=== PATIENT | female | born 1985 | race African-American/Black ===

== ENCOUNTER 2017-04-12 05:42 | Emergency (ER) | payer OTHER ==
[2017-04-12 06:10] VITALS: BP 136/95; PULSE 68; TEMP 98.7; BMI 31.6
--- NOTE | 2017-04-12 06:41 | PDOC ---
History of Present Illness - General Chief Complaint: Cold Symptoms Stated Complaint: SHORTNESS OF BREATH Time Seen by Provider: 04/12/17 06:19 - History of Present Illness Initial Comments: 04/12/17 06:27 CHIEF COMPLAINT: cough/chest pain HISTORY OF PRESENT ILLNESS: 31 yo F with no significant PMH presents to ED with uncertain complaint. Patient reports that she ate chips before going to bed, and "kind of like choked a little and coughed it up, and then I woke up feeling like I was still coughing and had phlegm, but I'm not sick, and then I felt some chest pain or something, but now I feel ok. I'm not sure what happened." Patient states she feels like she wants to go home and go to sleep. Patient reports that she was recently prescribed alprazolam for anxiety but has not taken any. No recent travel or sick contacts. PAST MEDICAL HISTORY: Denies past medical history FAMILY HISTORY: Denies SOCIAL HISTORY: Denies tobacco, alcohol, illicit drug use. SURGICAL HISTORY: Denies ALLERGIES: No known drug allergies REVIEW OF SYSTEMS General/Constitutional: Denies fever or chills. Denies weakness, weight change. HEENT: Denies change in vision. Denies ear pain or discharge. Denies sore throat. Cardiovascular: "I had chest pain for a little and some shortness of breath but now I feel better." Respiratory: "I coughed, and had some phlegm, and thought I couldn't breathe for second." Gastrointestinal: Denies nausea, vomiting, diarrhea or constipation. Denies rectal bleeding. Genitourinary: Denies dysuria, frequency, or change in urination. Musculoskeletal: Denies joint or muscle swelling or pain. Denies neck or back pain. Skin and breasts: Denies rash or easy bruising. PHYSICAL EXAM General Appearance: Well-appearing, appropriately dressed. No apparent distress. HEENT: EOMI, PERRLA, normal ENT inspection, normal voice, TMs normal, pharynx normal. No conjunctival pallor. No photophobia, scleral icterus. Neck: Supple. Trachea midline. No tenderness, rigidity, carotid bruit, stridor , lymphadenopathy, or thyromegaly. Respiratory/Chest: Lungs CTAB. No shortness of breath, chest tenderness, respiratory distress, accessory muscle use. No crackles, rales, rhonchi, stridor , wheezing, dullness Cardiovascular: RRR. S1, S2. Musculoskeletal/Extremities: Normal inspection. FROM of all extremities, normal capillary refill. Pelvis Stable. No CVA tenderness. No tenderness to extremities, pedal edema, swelling, erythema or deformity. Integumentary: Appropriate color, dry, warm. No cyanosis, erythema, jaundice or rash Neurologic: tap builder II-XII intact. Fully oriented, alert. Appropriate mood/affect. Motor strength 5/5. No appreciable EOM palsy, facial droop or sensory deficit. Past History - Past Medical History Allergies/Adverse Reactions: Allergies Allergy/AdvReac Type Severity Reaction Status Date / Time No Known Allergies Allergy Verified 04/12/17 06:08 Home Medications: Ambulatory Orders NK [No Known Home Medication] 05/22/15 Anemia: Yes - Surgical History Abdominal Surgery: Yes (D AND C) - Reproductive History (#): 6 Para: 2 Therapeutic (s) & number: Yes (2) - Immunization History Immunization Up to Date: Yes - Suicide/Smoking/Psychosocial Hx Smoking Status: No Smoking History: Never smoked Have you smoked in the past 12 months: No Number of Cigarettes Smoked Daily: 0 Information on smoking cessation initiated: No Hx Alcohol Use: No Drug/Substance Use Hx: No Substance Use Type: None *Physical Exam - Vital Signs Last Vital Signs Temp Pulse Resp BP Pulse Ox 98.7 F 68 14 136/95 100 04/12/17 06:09 04/12/17 06:09 04/12/17 06:09 04/12/17 06:09 04/12/17 06:09 Medical Decision Making - Medical Decision Making 04/12/17 06:41 31 yo F with no significant PMH presents to ED with coughing/choking sensation with chest pain s/p eating chips before going to bed. -EKG Patient states she wants to go home and f/u with her PCP Ber[facility] for further evaluation. Low risk for cardiac etiology, likely reflux secondary to eating prior to going to bed with mild anxiety attack. Patient is well appearing with normal physical exam. Advised patient of signs and symptoms for return to ER; patient verbalized understanding and agrees to plan. *DC/Admit/Observation/Transfer Diagnosis at time of Disposition: Anxiety, Gastroesophageal reflux disease - Discharge Dispostion Disposition: HOME Condition at time of disposition: Stable Admit: No - Referrals Referrals: Jackie Last MD [Non Staff, Medical] - - Patient Instructions Printed Discharge Instructions: DI for Anxiety -- Adult, DI for Panic Disorder , DI for Gastroesophageal Reflux Disease (GERD) Additional Instructions: Please follow up with Dr. Last today as planned. If you develop any new or worsening chest pain, shortness of breath, palpitations, or any new or worsening symptoms, please return to the ER.
--- NOTE | 2017-04-12 11:03 | EKG ---
Test Reason : Blood Pressure : / mmHG Vent. Rate : 066 BPM Atrial Rate : 066 BPM P-R Int : 168 ms QRS Dur : 102 ms QT Int : 402 ms P-R-T Axes : 049 020 020 degrees QTc Int : 421 ms NORMAL SINUS RHYTHM INCOMPLETE RIGHT BUNDLE BRANCH BLOCK BORDERLINE ECG WHEN COMPARED WITH ECG OF 22-MAY-2015 18:01, NO SIGNIFICANT CHANGE WAS FOUND Confirmed by REYES LUNDY MD ([id number]) on 04/12/2017 11:03:16 AM Referred By: Confirmed By:REYES LUNDY MD
== END 2017-04-12 06:55 | disposition home or self-care (01) ==
LOC: JER 05:42
DX: K21.9 Gastro-esophageal reflux disease without esophagitis (principal); F41.9 Anxiety disorder, unspecified
CPT/HCPCS: 93005; 93010; 99282-25

== ENCOUNTER 2018-01-01 23:24 | Emergency (ER) | payer OTHER ==
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
[2018-01-02 01:07] VITALS: BP 132/87; PULSE 62; TEMP 97.5; BMI 29.9
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
[2018-01-02] MEDS ORDERED: DIPHTH,PERTUSS(ACELL),TET 0.5 ML DISP.SYRIN IM ONE (01:16)
== END 2018-01-02 01:47 | disposition home or self-care (01) ==
LOC: JER 23:24
PROC: 3E0234Z Introduction of Serum, Toxoid and Vaccine into Muscle, Percutaneous Approach (ICD-10-PCS; principal; 2018-01-01)
DX: S70.371A Other superficial bite of right thigh, initial encounter (principal); Y04.1XXA Assault by human bite, initial encounter; Y93.89 Activity, other specified; Y92.512 Supermarket, store or market as the place of occurrence of the external cause; Y99.8 Other external cause status
CPT/HCPCS: 90471; 90715; 99282-25

== ENCOUNTER 2018-12-09 14:14 | Emergency (ER) | payer OTHER ==
[2018-12-09 14:26] VITALS: BP 133/85; PULSE 103; TEMP 98.1; BMI 31.6
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
[2018-12-09] MEDS ORDERED: SODIUM CHLORIDE 1,000 ML IV STA (15:29)
--- NOTE | 2018-12-09 15:52 | PDOC ---
History of Present Illness - General Chief Complaint: Revisit, Lab Variance Stated Complaint: SENT BY PCP FOR LOW H/H Time Seen by Provider: 12/09/18 14:23 History Source: Patient Exam Limitations: No Limitations - History of Present Illness Initial Comments: 12/09/18 15:17 33-year-old female presents to ED with complaints of generalized fatigue and weakness without shortness of breath with the past 2 weeks. Patient states symptoms have resolved slightly but went to her doctor early this week and had noted her H&H was low and was sent since she had syncopized approximately 10 days ago. Patient states approximately 2 weeks ago had liposuction to her legs upper back and arms. Patient has no complaints of fever, chills, chest pain or headache. She has no complaints of continual bleeding, worsening bruising or edema to the affected areas. Timing/Duration: changing over time Severity: mild Associated Symptoms: reports: malaise, weakness Past History - Travel Traveled outside of the country in the last 30 days: No Close contact w/someone who was outside of country & ill: No - Past Medical History Allergies/Adverse Reactions: Allergies Allergy/AdvReac Type Severity Reaction Status Date / Time No Known Allergies Allergy Verified 12/09/18 14:26 Home Medications: Ambulatory Orders Acetaminophen [Tylenol] 650 mg PRN 01/02/18 Amox-Tr/K Cl [Augmentin - 875Mg Tablet] 1 tab PO BID #14 tablet 01/02/18 Anemia: Yes COPD: No - Surgical History Abdominal Surgery: Yes (D AND C) - Reproductive History (#): 6 Para: 2 Therapeutic (s) & number: Yes (2) - Immunization History Immunization Up to Date: Yes - Suicide/Smoking/Psychosocial Hx Smoking Status: No Smoking History: Never smoked Have you smoked in the past 12 months: No Number of Cigarettes Smoked Daily: 0 Information on smoking cessation initiated: No Hx Alcohol Use: No Drug/Substance Use Hx: No Substance Use Type: None Patient Lives Alone: No Lives with/in: spouse/SO Review of Systems - Review of Systems Able to Perform ROS?: No Is the patient limited [place] Citizen proficient: No Constitutional: Yes: Loss of Appetite, Malaise, Weakness HEENTM: No: Symptoms Reported Respiratory: No: Shortness of Breath Cardiac (ROS): Yes: Lightheadedness ABD/GI: No: Symptoms Reported : No: Symptoms Reported Musculoskeletal: No: Symptoms Reported Integumentary: No: Pallor Neurological: Yes: Weakness, Dizziness Endocrine: No: Symptoms Reported Hematologic/Lymphatic: Yes: Anemia *Physical Exam - Vital Signs Last Vital Signs Temp Pulse Resp BP Pulse Ox 98.1 F 103 H 18 133/85 100 12/09/18 14:23 12/09/18 14:23 12/09/18 14:23 12/09/18 14:23 12/09/18 14:23 - Physical Exam General Appearance: Yes: Nourished, Appropriately Dressed. No: Apparent Distress HEENT: positive: EOMI, FERNANDO, TMs Normal. negative: Pale Conjunctivae Neck: positive: Normal Thyroid Respiratory/Chest: positive: Lungs Clear, Normal Breath Sounds. negative: Respiratory Distress, Accessory Muscle Use Cardiovascular: positive: Regular Rhythm, Regular Rate (88). negative: Murmur Gastrointestinal/Abdominal: positive: Soft. negative: Tenderness Extremity: positive: Normal Inspection Integumentary: positive: Normal Color, Warm, Moist Neurologic: positive: Motor Strength 5/5 (ambulatory) Heart Score/ECG Review - ECG Intrepretation Rhythm: Regular Rhythm (Normal sinus rhythm. 76. Intervals are regular. Inverted T waves in V1 and V2 V3.) ED Treatment Course - LABORATORY CBC & Chemistry Diagram: 12/09/18 15:25 12/09/18 15:25 Medical Decision Making - Medical Decision Making 12/09/18 15:32 Chief complaint: Fatigue weakness and poor appetite over the past 2 weeks since having my postreduction. Patient states also did syncopized right after surgery while in [place] but denies any headache chest pain or shortness of breath presently. As per physician Dr. Last patient had a low H&H of 7.5/ 26 3 days ago Exam. Patient with normal physical exam vital signs. Patient with compression bandage to upper legs and abdomen/back Plan: Labs, type and screen, IV IV fluids and coags 12/09/18 17:12 Laboratory Tests 12/09/18 12/09/18 12/09/18 15:25 15:25 15:25 WBC 3.7 L Hgb 8.8 L Hct 28.6 L D Absolute Neuts (auto) 2.1 Monocytes % 10.7 H PT with INR 13.50 H INR 1.14 H Sodium 142 Potassium 3.8 Chloride 110 H Carbon Dioxide 27 Anion Gap 5 L BUN 10 Creatinine 0.7 Est GFR (CKD-EPI)AfAm 132.87 Est GFR (CKD-EPI)NonAf 114.64 Random Glucose 92 Calcium 8.8 Total Bilirubin 0.5 AST 20 ALT 35 Alkaline Phosphatase 53 Total Protein 6.9 Pt awaiting EKG and if negative will discharge home with recommendations to follow-up with her PCP. *DC/Admit/Observation/Transfer Diagnosis at time of Disposition: Fatigue - Discharge Dispostion Disposition: HOME Condition at time of disposition: Good - Referrals Referrals: Jackie Last MD [Primary Care Provider] - - Patient Instructions Printed Discharge Instructions: Anemia: How Food and Vitamins Can Help Additional Instructions: I recommend follow-up with your PCP and discuss today's visit and bring results with you. Eat iron enriched foods and stay well-hydrated. - Post Discharge Activity
[2018-12-09 16:14] LABS: BASO % 1.4 % (0-2.0); EOS % 2.1 % (0-4.5); HEMATOCRIT 28.6 % (32.4-45.2); HEMOGLOBIN 8.8 GM/dL (10.7-15.3); LYMPH % 30.1 % (8-40); MCH 25.3 pg (25.7-33.7); MCHC 30.9 g/dl (32.0-36.0); MEAN CELL VOLUME 81.8 fl (80-96); MEAN PLT VOLUME 10.7 fl (7.5-11.1); MONO % 10.7 % (3.8-10.2); NEUT % 55.7 % (42.8-82.8); PLATELET COUNT 304 K/MM3 (134-434); RDW 18.7 % (11.6-15.6); WHITE BLOOD COUNT 3.7 K/mm3 (4.0-10.0)
[2018-12-09 16:21] LABS: INR 1.14 (0.83-1.09); PROTHROMBIN TIME (PATIENT) 13.5 SEC (9.7-13.0)
[2018-12-09 16:28] LABS: ALBUMIN 3.5 g/dl (3.4-5.0); BILIRUBIN,TOTAL 0.5 mg/dL (0.2-1); CALCIUM 8.8 mg/dL (8.5-10.1); CREATININE 0.7 mg/dL (0.55-1.3); POTASSIUM 3.8 mmol/L (3.5-5.1); TOT PROT 6.9 g/dl (6.4-8.2)
--- NOTE | 2018-12-10 15:34 | EKG ---
Test Reason : Blood Pressure : / mmHG Vent. Rate : 077 BPM Atrial Rate : 077 BPM P-R Int : 150 ms QRS Dur : 098 ms QT Int : 370 ms P-R-T Axes : 063 050 046 degrees QTc Int : 418 ms NORMAL SINUS RHYTHM INCOMPLETE RIGHT BUNDLE BRANCH BLOCK T WAVE ABNORMALITY, CONSIDER ANTERIOR ISCHEMIA ABNORMAL ECG WHEN COMPARED WITH ECG OF 12-APR-2017 06:41, NO SIGNIFICANT CHANGE WAS FOUND Confirmed by MD Willard, Jose ([id number]) on 12/10/2018 3:34:30 PM Referred By: Confirmed By:Jose Lamar MD
== END 2018-12-09 17:30 | disposition home or self-care (01) ==
LOC: JER 14:14
PROC: 3E0337Z Introduction of Electrolytic and Water Balance Substance into Peripheral Vein, Percutaneous Approach (ICD-10-PCS; principal; 2018-12-09)
DX: R53.83 Other fatigue (principal)
CPT/HCPCS: 36415; 80053; 85025; 85610; 86850; 86900; 86901; 93005; 93010; 99281-25; J7030

== ENCOUNTER 2021-11-27 12:52 | Emergency (ER) | payer OTHER ==
[2021-11-27 13:18] VITALS: BMI 29.9
[2021-11-27] MEDS ORDERED: ACETAMINOPHEN 325 MG TABLET (FP) PO ONE (13:20)
[2021-11-27] MEDS ORDERED: ACETAMINOPHEN 325 MG TABLET (FP) ONE (13:25)
[2021-11-27 14:43] LABS: EPI CELLS >36 /uL (0-25.1); HYALINE CASTS 7 /uL (0-3.1); PH,URINE 7.5 (5.0-8.0); URINE APPEARANCE CLOUDY; URINE BACTERIA 1597 /uL (0-1359); URINE BILIRUBIN NEGATIVE (NEGATIVE); URINE COLOR DK YELLOW; URINE GLUCOSE (UA) NEGATIVE (NEGATIVE); URINE KETONE TRACE (NEGATIVE); URINE LEUK ESTERASE TRACE (NEGATIVE); URINE NITRITE NEGATIVE (NEGATIVE); URINE PROTEIN 2+ (NEGATIVE); URINE RBC 15 /uL (0-23.9); URINE WBC 48 /uL (0-25.8)
[2021-11-27] MEDS ORDERED: AZITHROMYCIN 500 MG TABLET PO ONE (15:32)
[2021-11-27] MEDS ORDERED: metroNIDAZOLE 250 MG TABLET PO ONE ×2 (15:39→16:15)
[2021-11-27] MEDS ORDERED: AZITHROMYCIN 250 MG TABLET ONE (15:51)
[2021-11-27] MEDS ORDERED: CEFTRIAXONE 1 GM/50 ML BAG ONE (15:52)
[2021-11-27] MEDS ORDERED: metroNIDAZOLE 250 MG TABLET ONE (15:53)
[2021-11-27] MEDS ORDERED: metroNIDAZOLE 500 MG TABLET PO ONE (16:00)
[2021-11-27 18:22] VITALS: BP 117/69; PULSE 73; TEMP 97.7
== END 2021-11-27 18:25 | disposition home or self-care (01) ==
LOC: JER 12:52
DX: O23.12 Infections of bladder in pregnancy, second trimester (principal); O26.872 Cervical shortening, second trimester; N30.01 Acute cystitis with hematuria; Z3A.21 21 weeks gestation of pregnancy
CPT/HCPCS: 36415; 76815-TC; 81003; 87070; 87077; 87086; 87205; 87491; 87591; 87661; 96374; 99285-25

== ENCOUNTER 2023-12-26 10:51 | Emergency (ER) | payer OTHER ==
[2023-12-26 11:11] VITALS: BP 136/99; PULSE 102; RESP 18; TEMP 98.7; BMI 31.1
[2023-12-26 12:04] LABS: EPI CELLS 9 /uL (0-25.1); HYALINE CASTS 0 /uL (0-3.1); URINE APPEARANCE CLEAR; URINE BACTERIA 8 /uL (0-1359); URINE BILIRUBIN NEGATIVE (NEGATIVE); URINE COLOR YELLOW; URINE GLUCOSE (UA) NEGATIVE (NEGATIVE); URINE KETONE NEGATIVE (NEGATIVE); URINE LEUK ESTERASE TRACE (NEGATIVE); URINE NITRITE NEGATIVE (NEGATIVE); URINE PROTEIN 1+ (NEGATIVE); URINE RBC 339 /uL (0-23.9); URINE WBC 21 /uL (0-25.8)
[2023-12-26 12:05] LABS: BASO % 1.2 % (0-2.0); EOS % 0.5 % (0-4.5); HEMATOCRIT 38.2 % (32.4-45.2); HEMOGLOBIN 12.2 GM/dL (10.7-15.3); LYMPH % 31.8 % (8-40); MCH 25.1 pg (25.7-33.7); MEAN CELL VOLUME 78.4 fl (80-96); MEAN PLT VOLUME 10.7 fl (7.5-11.1); MONO % 8.7 % (3.8-10.2); NEUT % 57.8 % (42.8-82.8); PLATELET COUNT 188 10^3/uL (134-434); RBC 4.88 M/mm3 (3.60-5.2); RDW 13.2 % (11.6-15.6); WHITE BLOOD COUNT 4.6 K/mm3 (4.0-10.0)
[2023-12-26 12:13] LABS: INR 1.11 (0.83-1.09); PROTHROMBIN TIME (PATIENT) 12.5 SEC (9.7-13.0)
[2023-12-26 12:14] LABS: POTASSIUM 3.9 mmol/L (3.5-5.1)
[2023-12-26 12:16] LABS: ACTIVATED PTT 29.6 SECONDS (25.2-36.5)
[2023-12-26 12:17] LABS: BLOOD UREA NITROGEN 8.1 mg/dL (7-18); MAGNESIUM 2.1 mg/dL (1.8-2.4)
[2023-12-26 12:20] LABS: CREATININE 0.9 mg/dL (0.55-1.3)
[2023-12-26 12:22] LABS: BILIRUBIN,TOTAL 0.5 mg/dL (0.2-1); TOT PROT 7.3 g/dl (6.4-8.2)
[2023-12-26 12:40] LABS: CALCIUM 8.8 mg/dL (8.5-10.1)
[2023-12-26 12:41] LABS: BLOOD UREA NITROGEN 8.4 mg/dL (7-18)
[2023-12-26 12:44] LABS: CREATININE 0.8 mg/dL (0.55-1.3)
== END 2023-12-26 13:20 | disposition home or self-care (01) ==
LOC: JER 10:51
DX: N93.9 Abnormal uterine and vaginal bleeding, unspecified (principal); R55 Syncope and collapse; R42 Dizziness and giddiness; R00.2 Palpitations
CPT/HCPCS: 36415; 80048; 80053; 81003; 83735; 84703; 85025; 85610; 85730; 86850; 86900; 86901; 87086; 93005; 93010; 99284-25